=== PATIENT | male | born 1930 | race Caucasian/White ===

== ENCOUNTER → 2018-01-14 08:40 | Outpatient (CLI) | payer MEDICARE, OTHER ==
[~2018-01-14 08:40] MED LIST: ALDACTONE25 MG PO; CIMETIDINE800 MG; COLACE100 MG PO; COZAAR50 MG; NEURONTIN 300300 MG; ULTRAM50 MG PO; XANAX0.25 MG PO
[2018-02-12 06:37] VITALS: BMI 26.5
== END | disposition home or self-care (01) ==
LOC: D.RAD 08:40
DX: M54.16 Radiculopathy, lumbar region (principal); M54.40 Lumbago with sciatica, unspecified side

== ENCOUNTER 2018-02-11 08:23 | Outpatient (CLI) | payer MEDICARE, OTHER ==
[~2018-02-11] VITALS: Ht 172.7 cm; Wt 79.1 kg
--- NOTE | ~2018-02-11 | HEMODYNAMI ---
PATIENT:MYRNA RANGEL MEDICAL RECORD: [id number] : [birth year] [id number] ADMISSION DATE: 02/11/18 Generatedon:02/11/201813:57 Patient name: MYRNA RANGEL Patient #: [id number] SSN: DO B: 1930 Date of study: 02/11/2018 Page: Of Hemodynamic Procedure Report Patient Data Patient Demographics Procedure consent was obtained First Name: MYRNA Gender: Male Last Name: JUAN CARLOS : 1930 Patient #: [id number] Age: 87 year(s) Race: Unknown Additional ID: [id number] Contact details [address]: [address] [place] [address] State: [place] City: [place] Zip code: [address] Past Medical History Allergies Allergen Reaction Date Comments Reported Morphine 02/11/2018 Admission Admission Data Admission Date: 02/11/2018 Admission Time: 8:23 Height (in.): 68 BSA: 1.93 (m2) Height (cm.): 172.72 BMI: 26.46 (kg/m2) Weight (lbs.): 174 Weight (kg.): 78.93 Procedure Procedure Types Cath Procedure Peripheral Cath Diagnostic Procedure Cath Peripheral Kyphoplasty Kyphoplasty Thoracic Procedure Description Procedure Date Procedure Date: 02/11/2018 Procedure Start Time: 13:17 Procedure Staff Name Function Dean Casas MD Performing Physician Gabbie Webb RT Buckle Sewer Machine Gabbie Webb RT Monitor Yolanda Aguilar RN Nurse Naida Huerta RN Nurse Janet Mccormick RT Scrub aKrlo Marquis [facility] Additional personnel Procedure Data Cath Procedure Fluoroscopy Diagnostic fluoroscopy Total fluoroscopy Time: 8.9 time: 8.9 min min Diagnostic fluoroscopy Total fluoroscopy dose: 634 dose: 634 mGy mGy Procedure Medications Medication Administration Route Dosage Ancef (1Gm/50ml NS) I.V.P.B 1 g Heparin Flush Bag added to field 1 bags (1000units/500ml NS) Lidocaine 1% added to field 20 Oxygen NC 3 l/min Hemodynamics Rest BSA: 1.93 (m2) O2 Consumption: Estimated: 215.15 (ml/min) O2 Consumption indexed : Estimated:111.48 (ml/min/m) Heart Rate: 66 (bpm) Snapshots Pre Cath Intra NCS Post Cath Vital Signs Time Heart Resp SPO2 etCO2 NIBP (mmHg) Rhythm Pain Sedation Rate (ipm) (%) (mmHg) Status Level (bpm) 12:59:24 82 21 100 13.5 157/88(138) NSR 0 (11) 10(A) , No pain 13:03:31 64 13 100 3.7 109/93(105) NSR 0 (11) 10(A) , No pain 13:07:41 63 15 100 11.2 120/66(99) NSR 0 (11) 10(A) , No pain 13:11:57 62 12 100 10.5 126/63(94) NSR 0 (11) 10(A) , No pain 13:16:17 62 11 100 3 109/52(83) NSR 0 (11) 10(A) , No pain 13:20:25 52 11 100 9 100/52(66) NSR 0 (11) 10(A) , No pain 13:24:37 60 10 100 3.7 105/49(65) NSR 0 (11) 10(A) , No pain 13:28:51 67 8 100 3.7 107/47(78) NSR 0 (11) 10(A) , No pain 13:32:59 63 9 99 1.5 100/50(73) NSR 0 (11) 10(A) , No pain 13:37:05 64 8 100 6 100/55(75) NSR 0 (11) 10(A) , No pain 13:41:15 65 8 99 6.7 103/51(72) NSR 0 (11) 10(A) , No pain 13:45:25 69 12 99 13.5 109/60(81) NSR 0 (11) 10(A) , No pain 13:49:41 70 9 99 12.7 112/60(81) NSR 0 (11) 10(A) , No pain 13:53:53 68 11 99 12 119/61(95) NSR 0 (11) 10(A) , No pain Medications Time Medication Route Dose Verified Delivered Reason Notes Effe ctiveness by by 13:02:25 Ancef (1Gm/50ml I.V.P.B 1 g Dean DOMINGUEZ) Yessenia Huerta RN, MD 13:02:46 Heparin Flush added 1 Dean Moran used for Bag to bags Casas Casas procedure (1000units/500ml field MD [place] NS) 13:02:59 Lidocaine 1% added 20ml Dean Morna used for to vial Casas Casas procedure field MD [place] 13:03:17 Oxygen NC 3 Dean Moran used for l/min Casas Casas procedure MD [place] Procedure Log Time Note 11:38:26 Patient Weight : 174 lbs 11:38:32 Patient Height : 68 inches 12:37:28 Time tracking: Regular hours (M-F 7:00 - 5:00) 12:37:33 - 12:37:38 Use device set IR Diagnostic 12:37:41 Tegaderm 4 x 4 (1626W) opened to sterile field. 12:37:42 Sterile Angiographic Pack opened to sterile field. 12:37:43 Bag Decanter () opened to sterile field. 12:38:47 JAMEEL CANNULA ACCESS 10 G NEEDLE opened to sterile field. 12:38:48 JAMEEL BONE FILLER 10G VERTEPORT opened to sterile field. 12:38:49 JAMEEL AUTOPLEX MIXER W/VHV opened to sterile field. 12:38:57 - 12:39:04 Plan of Care:Hemodynamics will remain stable., Cardiac rhythm will remain stable., Comfort level will be maintained., Respiratory function will remain adequate., Patient/ family verbilizes understanding of procedure., Procedure tolerated without complication., Recovers from procedure without complications.. 12:39:14 Patient received from Outpatients to IR Alert and oriented. Tansferred to table in Prone position. 12:39:17 Warm blankets applied, and sam hugger turned on for patient comfort. 12:39:19 Correct patient and procedure confirmed by team. 12:39:22 Signed procedure consent form obtained from patient. 12:39:32 H&P Date Dictated: 02/11/2018 Within 30 days and on chart.. 12:39:42 Pre-procedure instructions explained to patient. 12:39:43 Pre-op teaching completed and patient verbalized understanding. 12:39:46 Family in waiting room. 12:39:49 Patient NPO since Midnight. 12:40:14 Patient allergic to Morphine 12:40:32 - 12:40:42 Powell 11G Curved Needle opened to sterile field. 12:58:28 Vital chart was started 13:02:17 Baseline sample Acquired. 13:02:18 Full Disclosure recording started 13:02:19 - 13:02:25 Ancef (1Gm/50ml NS) 1 g I.V.P.B was administered by Naida Huerta RN; ; 13:02:46 Heparin Flush Bag (1000units/500ml NS) 1 bags added to field was administered by Dean Casas MD; used for procedure; 13:02:57 ----Pre-sedation anethsthesia assessment.----please see anesthesia note s for monitoring of patient during procedure 13:02:59 Lidocaine 1% 20ml vial added to field was administered by Dean Casas MD; used for procedure; 13:03:17 Oxygen 3 l/min NC was administered by Dean Casas MD; used for procedure; 13:16:30 Physician arrived 13:17:02 --------ALL STOP TIME OUT------ 13:17:02 Final Timeout: patient, procedure, and site verified with staff and physician. All members of the team are in agreement. 13:17:23 Procedure started. 13:17:30 Local anesthetic to Thoracic area with Lidocaine 1% by Dean Casas MD.INITIAL ACCESS ONLY 13:21:17 Jamshidi needle introduced. 13:35:32 Cement introduced to vertebral body. 13:39:14 Cement introduced to vertebral body. 13:42:40 Jamshidi needle removed. 13:43:06 Procedure ended.(Physican Out) 13:43:45 Procedure and supply charges have been captured, reviewed, submitted an d are correct. 13:45:12 Fluoroscopy time 08.90 minutes. 13:45:24 Fluoroscopy dose: 634 mGy 13:45:24 Flurop Dose total: 634 13:57:05 Vital chart was stopped Device Usage Item Name Manufacture Quantity Catalog Hospital Part Current Minim al Lot# / Number Charge Number Stock Stock Serial# Code Tegaderm 4 x 3M 1 [id number] 4 (1626W) Sterile Cardinal 1 [id number] 5 Angiographic Health Pack Bag Decanter [employer] 1 2001S [id number] 5 (2001S) [employer] JAMEEL Jameel 1 [id number] 5 CANNULA ACCESS 10 G NEEDLE JAMEEL BONE Jameel 1 [id number] [id number] [id number] 5 FILLER 10G VERTEPORT JAMEEL Powell 1 [id number] [id number] [id number] [id number] 5 AUTOPLEX MIXER W/VHV Jameel 11G Powell 1 [id number] 974571 123571 5 Curved Needle Signature Audit [place] Stage Time Signature Unsigned Intra-Procedure 02/11/2018 Gabbie Webb 1:57:01 PM RT(R) Signatures Monitor : Gabbie Webb RT Signature : Date : Time : [place] [address] [place] [address]
[2018-02-11] MEDS ORDERED: CIMETIDINE800 MG (09:07)
[2018-02-11] MEDS ORDERED: COZAAR50 MG (09:07)
[2018-02-11] MEDS ORDERED: NEURONTIN 300300 MG (09:08)
[2018-02-11] MEDS ORDERED: ULTRAM50 MG PO (09:09)
[2018-02-11] MEDS ORDERED: ALDACTONE25 MG PO (09:09)
[2018-02-11] MEDS ORDERED: COLACE100 MG PO (09:10)
[2018-02-11] MEDS ORDERED: XANAX0.25 MG PO (09:10)
[2018-02-11 09:20] VITALS: BP 130/76; BMI 26.5
[2018-02-11 10:50] LABS: ANION GAP 11.9 mmol/L (8-16); BASOPHILS 0.3 % (0-2); CALCIUM 8.7 mg/dL (8.5-10.1); CARBON DIOXIDE 26.4 mmol/L (21.0-32.0); CREATININE - SERUM 1.3 mg/dL (0.6-1.3); EOSINOPHILS 4.6 % (0-7); HEMATOCRIT 42.6 % (42.0-54.0); IMMATURE GRANULOCYTES 0.2 % (0-5); LYMPHOCYTES 13.9 % (15-50); MCH 31.8 pg (26.0-34.0); MCHC 32.9 g/dL (31.0-37.0); MCV 96.8 fL (80.0-100.0); MEAN PLATELET VOLUME 10.8 fL (7.4-10.4); MONOCYTES 8.6 % (2-11); NEUTROPHILS 72.4 % (40-80); PLATELET COUNT 159 10x3/uL (130-400); POTASSIUM - SERUM 4.3 mmol/L (3.5-5.1); WBC 5.8 10x3/uL (4.8-10.8)
[2018-02-11 10:52] LABS: APTT 27.2 SECONDS (22.8-39.4); INR 1.02 (0.85-1.17)
[2018-02-11 15:52] LABS: APPEARANCE HAZY (CLEAR); BILIRUBIN NEGATIVE (NEGATIVE); COLOR YELLOW (YELLOW); GLUCOSE NEGATIVE (NEGATIVE); KETONE NEGATIVE (NEGATIVE); NITRITE NEGATIVE (NEGATIVE); PROTEIN NEGATIVE (NEGATIVE); SPECIFIC GRAVITY 1.015 (1.005-1.020); UROBILINOGEN NORMAL (NORMAL)
[2018-02-12 06:29] VITALS: BP 148/79
[2018-02-12 06:37] VITALS: BP 132/71; Ht 172.7 cm; Wt 79.1 kg
[2018-02-12 09:52] VITALS: BP 139/75
== END 2018-02-12 10:29 | disposition home or self-care (01) ==
LOC: D.SP 08:23 → D.RAD 11:00 → D.MS 19:11 → D.SP 02-12 10:29
PROVIDERS: Specialist
DX: M48.54XA Collapsed vertebra, not elsewhere classified, thoracic region, initial encounter for fracture (principal); K21.9 Gastro-esophageal reflux disease without esophagitis; Z01.812 Encounter for preprocedural laboratory examination